=== PATIENT | female | born 1955 | race Caucasian/White ===

== ENCOUNTER 2018-09-21 10:06 | Emergency (ER) | payer MEDICARE, MEDICAID, SELFPAY ==
[2018-09-21 10:08] VITALS: BP 154/77; PULSE 79; RESP 20; TEMP 36.3; O2SAT 100; BMI 31.6
[2018-09-21] MEDS: dexAMETHasone 10 MG/ML Vial IV (10:25)
--- NOTE | 2018-09-21 10:32 | ED.VIS.GEN ---
History of Present Illness Chief Complaint: General Illness Narrative: Patient presenting secondary to an abnormal CT brain results. Patient presented to primary care yesterday complaining about some headaches with mild blurred vision. She had an outpatient CT that was ordered that showed multifocal hemorrhagic mass lesions with associated vasogenic edema and a mild amount of mass-effect with leftward midline shift. Patient denies that she is having any sort of numbness, weakness, she currently denies any headache, she denies any visual changes. She is awake and alert. Patient has an underlying history of high functioning MR, no prior history of cancer. Patient lives in her own apartment with her daughter and does have a caregiver. Upon recognition of the abnormal CT results, the patient was sent immediately to the emergency department. Past Medical History - Allergies and Home Meds Allergies/Adverse Reactions: Allergies Bleach (Sodium Hypochlorite) Allergy (Verified 04/12/17 17:08) Rash latex Allergy (Verified 04/12/17 17:08) Rash Smoking Status: Never smoker Review of Systems General: Denies: Chills, Fever Eyes: Reports: Blurred Vision - bilaterally Neurological: Reports: Headache. Denies: Weakness, Parasthesia, Numbness Physical Exam Vital Signs/Narrative: Vital Signs Temp Pulse Resp BP Pulse Ox 09/21/18 10:08 97.4 F L 79 20 H 154/77 H 100 General: Well nourished, Well developed, No Acute Distress Head: Normocephalic, Atraumatic Eyes: Perrl, EOMI ENT: Moist mucous membranes, No rhinorrhea Neck: Supple, Nontender Cardiovascular: Regular rate, Regular rhythm, No murmurs Respiratory: No distress, CTA bilaterally, Chest nontender Abdomen: Soft, Nontender, Nondistended, Normal bowel sounds Extremities: Nontender, No edema Skin: Normal color, No rash Neurological: Alert, Oriented x3, Cranial nerves II-XII grossly intact, Normal Strength, Normal Sensation Psychological: Normal affect, Normal Mood Diagnostic/Tx/Re-eval - Medical Decision Making Patient presented secondary to brain masses. I reviewed the patient's results and also reviewed her CT scan to confirm this. IV was established patient was given 10 mg of Decadron. Currently the patient is awake, alert, has no complaints, no neuro deficits, has a patent airway, and does not require any intervention emergently. I do believe however that she requires admission to a center with the option for neurosurgery as well as oncology. Caregiver requested to transfer initially to [facility] which does not have neurosurgery, so ultimately the decision was made to transfer the patient to [facility]. Transfer line was contacted. [facility] was accepted, [facility]. ED Disposition - Plan for ED Patient: Disposition: [facility] Diagnosis: Brain metastases, Vasogenic brain edema
--- NOTE | 2018-09-21 10:36 | ED.DCSUM_ITS ---
History of Present Illness Chief Complaint: General Illness Narrative: Patient presenting secondary to an abnormal CT brain results. Patient presented to primary care yesterday complaining about some headaches with mild blurred vision. She had an outpatient CT that was ordered that showed multifocal hemorrhagic mass lesions with associated vasogenic edema and a mild amount of mass-effect with leftward midline shift. Patient denies that she is having any sort of numbness, weakness, she currently denies any headache, she denies any visual changes. She is awake and alert. Patient has an underlying history of high functioning MR, no prior history of cancer. Patient lives in her own apartment with her daughter and does have a caregiver. Upon recognition of the abnormal CT results, the patient was sent immediately to the emergency department. Past Medical History - Allergies and Home Meds Allergies/Adverse Reactions: Allergies Bleach (Sodium Hypochlorite) Allergy (Verified 04/12/17 17:08) Rash latex Allergy (Verified 04/12/17 17:08) Rash Smoking Status: Never smoker Review of Systems General: Denies: Chills, Fever Eyes: Reports: Blurred Vision - bilaterally Neurological: Reports: Headache. Denies: Weakness, Parasthesia, Numbness Physical Exam Vital Signs/Narrative: Vital Signs Temp Pulse Resp BP Pulse Ox 09/21/18 10:08 97.4 F L 79 20 H 154/77 H 100 General: Well nourished, Well developed, No Acute Distress Head: Normocephalic, Atraumatic Eyes: Perrl, EOMI ENT: Moist mucous membranes, No rhinorrhea Neck: Supple, Nontender Cardiovascular: Regular rate, Regular rhythm, No murmurs Respiratory: No distress, CTA bilaterally, Chest nontender Abdomen: Soft, Nontender, Nondistended, Normal bowel sounds Extremities: Nontender, No edema Skin: Normal color, No rash Neurological: Alert, Oriented x3, Cranial nerves II-XII grossly intact, Normal Strength, Normal Sensation Psychological: Normal affect, Normal Mood Diagnostic/Tx/Re-eval - Medical Decision Making Patient presented secondary to brain masses. I reviewed the patient's results and also reviewed her CT scan to confirm this. IV was established patient was given 10 mg of Decadron. Currently the patient is awake, alert, has no complaints, no neuro deficits, has a patent airway, and does not require any intervention emergently. I do believe however that she requires admission to a center with the option for neurosurgery as well as oncology. Caregiver requested to transfer initially to [facility] which does not have neurosurgery, so ultimately the decision was made to transfer the patient to [facility]. Transfer line was contacted. [facility] was accepted, [facility] ED Disposition - Plan for ED Patient: Disposition: [facility] Diagnosis: Brain metastases, Vasogenic brain edema
[2018-09-21 11:07] VITALS: BP 143/84; PULSE 75; RESP 16; O2SAT 100
--- NOTE | 2018-09-21 11:39 | NURSING ---
report given to [facility] neuro ICU
== END 2018-09-21 11:40 | disposition short-term general hospital (02) ==
PROVIDERS: Emergency Provider Emergency Medicine; Family Provider Student in an Organized Health Care Education/Training Program; PCP Student in an Organized Health Care Education/Training Program
DX: C79.31 Secondary malignant neoplasm of brain (principal); G93.6 Cerebral edema; Z79.899 Other long term (current) drug therapy
CPT/HCPCS: 96374; 99285; A4216

== ENCOUNTER → 2018-11-22 09:35 | Outpatient (CLI) | payer MEDICARE, MEDICAID, SELFPAY ==
--- NOTE | 2018-10-20 18:21 | PCM.HP.BLA ---
History and Physical Date of Admission: 10/24/18 HISTORY AND PHYSICAL ? Shahida Kebede 1955 ? ? REFERRING PHYSICIAN: ??Crow Womack, DO ? CHIEF COMPLAINT: ??Breast Biopsy-1 ? HPI: The patient is a 63 year old female with a diagnosis of?metastatic breast cancer.??The patient has a history of MRDD. ?She had a previous mammogram 2 years previously which demonstrated a vague abnormality but then failed follow-up. ?The patient presented with a complaint of headaches. ?She was transferred to tertiary care center after CT scan on September 21, 2018 showed multi-tentorial hemorrhagic mass lesions with edema and mass shift. ?The lesions were from several millimeters to 3 cm maximal diameter. ?Workup including a CT scan of the chest abdomen and pelvis demonstrated asymmetric nodular soft tissue within the right breast extending the right pectoralis muscle with diffuse skin thickening multiple enlarged axillary lymph nodes prominent tracheal nodes and multiple pulmonary nodules. ?Mammogram was obtained which demonstrated an irregular mass in the right 12:00 breast suggestive for malignancy she had a lung biopsy performed on September 19, 2018 which returned as adenocarcinoma felt to be consistent with a breast primary. ? Shhaida is currently scheduled to undergo chemotherapy and needs vascular access for treatment. ?The patient denies a prior history of central venous access. ? ? I'm also request to obtain ultrasound-guided biopsies of the breast abnormality to prove primary source and provide additional tissue for further studies ? The patient is being seen by me today at the request of ?for my opinion and advice regarding need for right ultrasound-guided breast biopsy and left Port-A-Cath placement.? ? The patient's caregiver also notes bilateral lower extremity edema which seemed to start this morning. ? ? PAST?MEDICAL?HISTORY PAST MEDICAL HISTORY Diagnosis Date ? HYPERTENSION NOS ? ? HYPOTHYROIDISM NOS ? ? Knee pain ? ? L>R ? Mental retardation ? ? HIGH FUNCTIONING ? Obesity ? ? Obesity, unspecified ? ? Stress incontinence 02/07/2014 ? ? PAST?SURGICAL?HISTORY PAST SURGICAL HISTORY Procedure Laterality Date ? EGD ? 1987 ? ulcer after son born ? PAST SURGICAL HISTORY OF ? ? ? WISDOM TEETH ? REMOVE TONSILS/ADENOIDS,<12 Y/O ? ? ? age 10 ? TUBAL LIGATION, ? 1999 ? ? CURRENT?MEDICATIONS Current Outpatient Medications Medication Sig Dispense Refill ? prochlorperazine (COMPAZINE) 10 mg tablet Take 1 tablet by mouth every 6 hours as needed. 30 tablet 2 ? levothyroxine (SYNTHROID) 100 mcg tablet Take 1 tablet by mouth once daily. 90 tablet 1 ? loratadine (CLARITIN) 10 mg tablet Take 1 tablet by mouth once daily as needed. 30 tablet 5 ? dexamethasone (DECADRON) 4 mg tablet Take 1 tablet by mouth every 12 hours for 14 days. (Patient taking differently: Take 4 mg by mouth daily with breakfast. ) 28 tablet 0 ? COMPOUNDED PRESCRIPTION Okay to return to day program as tolerated per ablility. (Patient not taking: Reported on 10/13/2018 ) 1 Each 0 ? COMPOUNDED PRESCRIPTION Home delivered meals - high protein meals with soft foods. (Patient not taking: Reported on 10/13/2018 ) 1 Each 0 ? Underpads 23 X 36 pads Use as needed. 72 Each 11 ? COMPOUNDED PRESCRIPTION Bathtub safety grab bars (Patient not taking: Reported on 10/13/2018 ) 2 Each 3 ? COMPOUNDED PRESCRIPTION Hand held shower. (Patient not taking: Reported on 10/13/2018 ) 1 Each 0 ? COMPOUNDED PRESCRIPTION Assess for an appropriate mobility device and receive training on how to use that device. (Patient not taking: Reported on 10/13/2018 ) 1 Each 0 ? levETIRAcetam (KEPPRA) 500 mg tablet Take 1 tablet by mouth twice daily. 60 tablet 2 ? acetaminophen (TYLENOL 8 HOUR) 650 mg CR tablet Take 650 mg by mouth every 8 hours as needed for Pain. ? ? ? meloxicam (MOBIC) 15 mg tablet Take 1 tablet by mouth once daily. 30 tablet 5 ? Cholecalciferol, Vitamin D3, 5,000 unit cap Take 1 capsule by mouth once daily. With food 90 capsule 2 ? fluticasone (FLONASE) 50 mcg/actuation nasal spray Use 2 Sprays in each nostril once daily. 1 Bottle 11 ? No current facility-administered medications for this visit.? ? ALLERGIES:?Asa [Salicylates]; Bleach [Other]; Latex ? PERSONAL HISTORY:? SOCIAL?HISTORY Social History ??Socioeconomic History ?Marital status: Single ?Spouse name: Not on file ?Number of children: 2 ?Years of education: Not on file ?Highest education level: Not on file ??Social Needs ?Financial resource strain: Not on file ?Food insecurity - worry: Not on file ?Food insecurity - inability: Not on file ?Transportation needs - medical: Not on file ?Transportation needs - non-medical: Not on file ??Occupational History ?Employer: [employer] ??Tobacco Use ?Smoking status: Never Smoker ?Smokeless tobacco: Never Used ??Substance and Sexual Activity ?Alcohol use: No ?Drug use: No ?Sexual activity: Not Currently ??Other Topics ?Concerns: ?Not on file ??Social History Narrative ?Lives in own apartment with her daughter (1999) and cats. Has son (1987) also (born at home in bath tub). ?She is her own guardian, but her older sister manages her money. ? FAMILY HISTORY:? FAMILY?HISTORY FAMILY HISTORY Problem Relation Age of Onset ? Cancer Mother ? ? Heart disease Father ? ? Hypertension Father ? ? Diabetes Brother ? ? Diabetes Brother ? ? Heart disease Brother ? ? Hypertension Brother ? ? Cancer Sister ? ? Cancer Sister ?breast ? Breast Cancer Maternal Aunt ? ? REVIEW OF SYMPTOMS: ??The review of systems data was entered by the nurse and reviewed by me ? Nursing Notes: Calista Sandoval LPN ?10/18/2018 ?3:25 PM ?Signed REVIEW OF SYSTEMS: ?General:???The patient NOTES fatigue, denies weight loss, denies weight gain, denies feeling hot, and denies feelings of cold. ?Eyes: ?The patient denies glaucoma, denies eye injury/surgery, wears glasses or contacts. ?Ear/Nose/Throat: ?The patient NOTES allergies, denies hayfever, denies ear infections, and denies bloody noses. ?Cardiovascular: ?The patient denies chest pain, denies heart disease, denies high blood pressure,denies cardiac stent, denies prior heart attack, denies irregular heart beat, denies high cholesterol, ?denies poor circulation, denies heart failure, other cardiac issues, denies claudication, denies cold feet, denies peripheral arterial stent. ?Respiratory: ?The patient denies tuberculosis, denies pneumonia, denies frequent cough, denies pulmonary embolism, denies shortness of breath, and denies coughing up blood. ?Gastrointestinal: ?The patient denies difficulty swallowing, denies acid reflux, denies ulcers, denies vomiting, denies jaundice/hepatitis, denies gallbladder problems, denies black or tarry stools, denies hemorrhoids, denies bleeding from rectum, denies diverticulitis, denies constipation, denies diarrhea, denies loss of stool control, and denies hernias. ?Kidney/Bladder: ?The patient denies kidney stones, denies urine infections, and denies bloody urine. ?Skin: ?The patient denies a history of skin cancer, denies bleeding/changing moles, and denies a history of skin rash. ?Neurologic: ?The patient denies a history of epilepsy/convulsions, denies headaches, denies head/spinal injuries, and denies stroke/TIA. ?Psychiatric: ?The patient denies psychiatric medications, denies depression, and denies voices, denies substance abuse. ?Endocrine: ?The patient NOTES thyroid disorders, denies diabetes, and denies hormonal problems. ?Hematologic: ?The patient NOTES a history of bruising, denies bleeding, and denies anemia, denies blood clots. ?Infections: ?The patient denies a history of measles and mumps, denies rheumatic fever, and denies sexually transmitted diseases. ?Musculoskeletal: ?The patient denies back pain/injury, denies back problems, denies sciatica, denies knee/foot trouble, denies arthritis, or denies gout. ? ? When was patient's last Mammogram screening? 08/2018 ? ?Last Colonoscopy: ?nONE ? Calista Sandoval LPN ? PHYSICAL EXAMINATION: ? General: ?The patient is 63 year old female, well nourished, well hydrated in no acute distress. ?The patient is oriented to time, place, and person. ? VITALS:?Blood pressure 117/71, pulse 70, temperature 36.1 ?C (96.9 ?F), temperature source Temporal Artery, height 165.1 cm (5' 5), weight 88 kg (194 lb), last menstrual period 04/25/2015.?Body mass index is 32.28 kg/m?.? ? HEENT: ?Normal cephalic, ataumatic, pupils are equally round, sclera are anicteric, mucous membranes are moist, oropharynx is clear. ?Neck has no masses, asymmetry or lymphadenopathy. ?Thyroid is unremarkable. ? Respiratory: ?Clear to auscultation and percussion. ?Normal respiratory excursion and pattern. ? Cardiac: ?Examination is regular rate and rhythm. ? Abdominal exam: ?Soft, nontender, ?with no palpable masses. ?No hepatosplenomegaly. ?No palpable hernias. ? Rectal exam:??exam deferred ? Extremities:??Bilateral lower extremity edema, mildly pitting without signs of cyanosis ? Other:?Right breast reveals significant skin changes consistent with inflammation worrisome for inflammatory breast cancer. ?There is a palpable mass in the 12:00 to upper outer quadrant of the right breast. ?This seems relatively poorly mobile. ?There are palpable lymph nodes in the right axilla. ?Left breast demonstrates no palpable abnormalities. ?Left axilla is negative. ? LABORATORY VALUES: As Noted ? RADIOLOGIC STUDIES: ?As Noted -? ? Surprisingly right breast intraoffice ultrasound was relatively vague regarding an obvious ultrasound abnormality. ? Chest x-ray was obtained-final results/reading pending but no signs of significant fluid overload or right sided failure. ? ? Assessment ? IMPRESSION:??Metastatic presumed right breast cancer, need for IV access,?lower extremity edema ? PLAN: ??I plan to perform a left sided?port a cath placement. ?The planned surgical procedure was discussed extensively with the patient. ?The risks, benefits, anticipated outcomes and possible complications were mentioned. ?My staff has also explained the procedure in understandable terms and the patient was given the option to take printed material concerning the planned procedure. ?The patient had the opportunity to ask questions concerning the planned procedure. ?The patient freely consents to the planned procedure. ? We discussed the possibility of ultrasound-guided breast biopsy today but given the patient's history of MRDD and multiple recent procedures we elected in discussions with the patient and her brother and caregiver to perform ultrasound-guided biopsies of the right breast at the same time as Port-A-Cath placement. ?This will further allow us to have these samples evaluated in pathology to assure that there was adequate sampling of the breast cancer so that additional procedures/biopsies could be performed. ? I ordered lower extremity duplex given her symptom onset of lower extremity swelling ? Planned Procedure:???left??Subclavian portacath - [id number] and Fluoroscopic for vascular access - 55909-040-70,?right ultrasound guided core needle breast biopsy/superficial skin biopsy ? Patient Weight ?Last 1 Encounter Wt Readings: ???Date: ?Wt: ???10/18/2018 ??88.2 kg (194 lb 8 oz) ? Antibiotic:???Ancef 2gm IVPB recreation program coordinator to OR ? Planned Anesthetic:?MAC with local? I?do not?plan to access the port at the time of surgery. ? Diagnoses:?(C50.411, ?Z17.1) Malignant neoplasm of upper-outer quadrant of right breast in female, estrogen receptor negative (HCC) ?(primary encounter diagnosis) (C79.31) Brain metastases (HCC) (N63.10) Breast mass, right (R51) Headache, unspecified headache type (R91.8) Multiple lung nodules on CT (R60.0) Bilateral leg edema ? Jasvir Barger MD
== END ==
PROVIDERS: Family Provider Student in an Organized Health Care Education/Training Program; PCP Student in an Organized Health Care Education/Training Program; Referring Provider Surgery; Visit Provider Surgery
DX: Z53.9 Procedure and treatment not carried out, unspecified reason (principal)